=== PATIENT | male | born 1990 | race Two or more races ===

== ENCOUNTER → 2020-08-06 | Outpatient (CLI) | payer OTHER ==
--- NOTE | 2020-08-07 09:56 | RADIOLOGY REPORT (SQ) ---
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 TECHNIQUE: Realtime and static grayscale images acquired. Selected color Doppler, velocities and spe ctral images recorded. LIMITATIONS: None. FINDINGS: RIGHT KIDNEY: RENAL ARTERY VELOCITIES: 30.5 cm/sec at the origin and 73.3 cm/sec at the renal hilum. Segmental ar bianca velocity: 48.9 cm/sec. RENAL VEIN: Patent. VELOCITY RATIO: 0.4. Normal spectral waveforms. KIDNEY: The right kidney measures 10.5 cm in length. The echogenicity of the renal parenchyma is wi thin normal limits. The normal corticomedullary differentiation is preserved. There is no hydroneph rosis. LEFT KIDNEY: RENAL ARTERY VELOCITIES: 97.7 cm/sec at the origin and 57 cm/sec at the renal hilum. Segmental arter y velocity: 46.3 cm/sec. RENAL VEIN: Patent. VELOCITY RATIO: 1.3. Normal spectral waveforms. KIDNEY: The left kidney measures 9.8 cm in length. The echogenicity of the renal parenchyma is with in normal limits. The normal corticomedullary differentiation is preserved. There is no hydronephro sis. AORTA VELOCITY: 75.3 cm/sec. BLADDER: No abnormality. OTHER: No other findings. IMPRESSION: NO DOPPLER EVIDENCE OF A HEMODYNAMICALLY SIGNIFICANT RENAL ARTERY STENOSIS. COMMENT: NORMAL RENAL ARTERY/AORTA VELOCITY RATIO IS LESS THAN OR EQUAL TO 3.5. TECHNICAL DOCUMENTATION: JOB ID: [id number] 2010 [employer]- All Rights Reserved Reading location - IP/workstation name: [email or web address]
== END ==
LOC: RAD 09:14
PROVIDERS: ATTEND Physician Assistant
DX: I70.1 Atherosclerosis of renal artery (principal); I10 Essential (primary) hypertension
CPT/HCPCS: 93975